=== PATIENT | male | born 1960 | race Caucasian/White ===

== ENCOUNTER 2019-01-16 08:56 | Day surgery (SDC) ==
[2019-01-16] MEDS ORDERED: cefOXitin 2,000 MG in Water for inj. (sterile) 20 ML IVP ONE (09:23)
[2019-01-16] MEDS ORDERED: Ringers Solution, Lactated 1,000 ML IVC SCH ×2 (09:30)
[2019-01-16] MEDS ORDERED: *HR* Promethazine 25 MG/ML VIAL IVP PRN (09:30)
[2019-01-16] MEDS ORDERED: Ondansetron ODT 4 MG TAB.RAPDIS SL ONE (09:30)
[2019-01-16] MEDS ORDERED: *HR* Meperidine 25 MG/ML SYRINGE IVP PRN (09:30)
[2019-01-16] MEDS ORDERED: diazePAM 5 MG TABLET PO ONE (09:30)
[2019-01-16] MEDS ORDERED: Acetaminophen IV 1,000 MG/100 ML INFUS..BTL IVPB ONE (09:30)
[2019-01-16] MEDS ORDERED: *HR* OxyCODONE Immed Rel 5 MG TABLET PO PRN (09:30)
[2019-01-16] MEDS ORDERED: *HR* Rocuronium Bromide 50 MG/5 ML VIAL ONE (09:53)
[2019-01-16] MEDS ORDERED: *HR* Succinylcholine 200 MG/10 ML VIAL IVP ONE (09:53)
[2019-01-16] MEDS ORDERED: Ondansetron 4 MG/2 ML VIAL ONE (09:53)
[2019-01-16] MEDS ORDERED: Dexamethasone 4 MG/ML VIAL ONE (09:53)
[2019-01-16] MEDS ORDERED: Lidocaine -MPF 2% 2 ML VIAL ONE (09:53)
[2019-01-16] MEDS ORDERED: *HR* Propofol 200 MG/20 ML VIAL IVP ONE ×2 (09:57→11:42)
[2019-01-16] MEDS ORDERED: *HR* FentaNYL (PF) 100 MCG/2 ML VIAL ONE (09:57)
[2019-01-16] MEDS ORDERED: *HR* Midazolam HCl 2 MG/2 ML VIAL ONE (10:38)
[2019-01-16] MEDS ORDERED: Lidocaine HCL 4 ML Topical Solution (Laryng-O-Jet Kit Sterile Pak) TP ONE (11:44)
[2019-01-16] MEDS ORDERED: *HR* PHENYLEPHRINE 1,000 MCG/10 ML SYRINGE IVP ONE (12:52)
[2019-01-16] MEDS: *HR* HYDROmorphone (PF) 1 MG/ML SYRINGE IVP PRN ×2 (14:49→15:00)
[2019-01-16] MEDS ORDERED: Ketorolac 15 MG/ML VIAL IVP PRN (15:26)
[2019-01-16] MEDS: 0.9 % Sodium Chloride w KCl 20 MEQ/1,000 ML MLS IVC SCH (19:01)
[2019-01-17] MEDS: 0.9 % Sodium Chloride w KCl 20 MEQ/1,000 ML MLS IVC SCH ×2 (09:14→23:46)
[2019-01-17] MEDS: hydroCHLOROthiazide 25 MG TABLET PO SCH (09:14)
[2019-01-17] MEDS: Lisinopril 20 MG TABLET PO SCH (09:15)
[2019-01-17] MEDS: Ondansetron 4 MG/2 ML VIAL IVP PRN ×2 (14:07→19:59)
[2019-01-18] MEDS: Ondansetron 4 MG/2 ML VIAL IVP PRN (08:50)
[2019-01-18] MEDS: Lisinopril 20 MG TABLET PO SCH (08:50)
[2019-01-18] MEDS: hydroCHLOROthiazide 25 MG TABLET PO SCH (08:50)
[2019-01-18 11:18] VITALS: BP 101/61
[2019-01-18] MEDS ORDERED: Ondansetron ODT 4 MG TAB.RAPDIS SL PRN (12:41)
[2019-01-18] MEDS ORDERED: Ibuprofen 800 MG TABLET PO PRN (12:41)
[2019-01-18] MEDS ORDERED: *HR* OxyCODONE Immed Rel 5 MG TABLET PO PRN (12:43)
== END 2019-01-18 17:30 | disposition home or self-care (01) | DRG 348 ==
LOC: SAMDAY 08:56 → 3NENU 14:36 → SAMDAY 01-18 17:30
PROVIDERS: ATTEND Surgery

== ENCOUNTER 2019-01-22 16:14 | Inpatient (IN) ==
[2019-01-22] MEDS: 0.9 % Sodium Chloride 1,000 ML IVC SCH (21:53)
[2019-01-22] MEDS ORDERED: Ondansetron 4 MG/2 ML VIAL IVP PRN (23:48)
[2019-01-23] MEDS: Piperacillin/Tazobactam 3.375 GM in 0.9 % Sodium Chloride Mini Bag 100 ML IVPB SCH ×4 (00:59→23:29)
[2019-01-23 07:45] LABS: Eosinophils # 0.1 K/mcL (0.0-0.6); Eosinophils % 1.2 %; Hemoglobin 7.8 g/dL (12.9-16.9); Immature Granulocytes % 0.6 % (0-4); Lymphocytes # 0.3 K/mcL (0.6-4.6); Mean Corpuscular HGB Conc 31.2 g/dL (31.6-35.5); Mean Corpuscular Hemoglobin 24.8 pg (28.0-33.3); Mean Corpuscular Volume 79.6 fL (83.0-100.0); Monocytes # 0.6 K/mcL (0.0-1.3); Monocytes % 9.1 %; Neutrophils # 5.6 K/mcL (1.6-8.9); Platelet Count 211 K/mcL (140-400); Red Blood Count 3.14 M/mcL (4.19-5.50); Red Cell Distribution Width 14.7 % (11.5-14.5); Segmented Neutrophils % 84.1 %; White Blood Count 6.6 K/mcL (4.3-11.1)
[2019-01-23 08:05] LABS: BUN/Creatinine Ratio 14 (6-26); Blood Urea Nitrogen 11 mg/dL (6-20); Carbon Dioxide 25 mEq/L (23-29); Chloride 98 mEq/L (98-107); Glucose 90 mg/dL (70-105); Osmolality,Calculated 277 (280-300); Potassium 2.8 mEq/L (3.5-5.1); Sodium 134 mEq/L (136-145); eGFR For African Americans > 60 (> 60); eGFR For Non-African Americans > 60 (> 60)
[2019-01-23] MEDS: 0.9 % Sodium Chloride 1,000 ML IVC SCH ×2 (08:18→20:18)
--- NOTE | 2019-01-23 09:57 | General Surg History&Physical ---
Date of Encounter: 01/23/19 Time of Encounter: 09:50 Assessment and Plan (1) Perforation and abscess of large intestine concurrent with and due to diverticulitis Current Visit: Yes Status: Acute The assessment and plan as outlined above was discussed with the patient and/or family members who expressed understanding and agreement. All questions were an swered. NPO IV fluids IV antibiotics- Zosyn Supportive care Wound care- wound vac removed and packing placed for not Plan to proceed to the operating room for a laparoscopic diverting loop ileostomy with Dr. Cobos IS every 1 hour while awake GI/DVT prophylaxis Repeat am labs- CBC, BMP Type and Screen now (2) Colostomy complication Current Visit: No Status: Acute The assessment and plan as outlined above was discussed with the patient and/or family members who expressed understanding and agreement. All questions were answered. Plan to proceed to the operating room for a laparoscopic diverting loop ileostomy with Dr. Cobos (3) Open wound, abdominal wall, lateral Current Visit: Yes Status: Acute The assessment and plan as outlined above was discussed with the patient and/or family members who expressed understanding and agreement. All questions were answered. Plan to proceed to the operating room for a laparoscopic diverting loop ileostomy with Dr. Cobos Wound vac removed Plan to re-apply likely post-operatively [employer] notified to hold outpatient billing while hospitalized student services counselor consulted and notified Qualifiers: Encounter type: subsequent encounter Qualified Code(s): S31.109D - Unspecified open wound of abdominal wall, unspecified quadrant without penetration into peritoneal cavity, subsequent encounter (4) Rectal cancer Current Visit: No Status: Chronic The assessment and plan as outlined above was discussed with the patient and/or family members who expressed understanding and agreement. All questions were answered. Oncology following as outpatient (5) Hypokalemia Current Visit: Yes Status: Acute The assessment and plan as outlined above was discussed with the patient and/or family members who expressed understanding and agreement. All questions were answered. Potassium- 2.8 Replace potassium Repeat level at 2100 after replacement complete Repeat am BMP (6) DVT prophylaxis Current Visit: No Status: Acute The assessment and plan as outlined above was discussed with the patient and/or family members who expressed understanding and agreement. All questions were answered. Ambulate hallways TID with assistance EPCDs bilateral lower extremities for DVT prophylaxis History of Present Illness Chief complaint: s/p Fall, purulent drainage from left lateral wound HPI: Mr. Garcia is a 58 year old male with a history of rectal cancer. He was initially treated with chemotherapy and radiation. He is s/p an APR with Dr. Cobos on November 21, 2018. His postoperative course has been complicated by a detached ostomy, wound and perforated diverticulum. He was taken to the operat ing room on 01/17/19 for a Revision of colostomy and placement of wound VAC with Dr. Cobos. The patient states that he has been feeling weak since his last surgery. He fell yesterday due to weakness and was taken by his to the nearest ED at [facility]. He states that he did not lose consciousness, he simply felt weak and fell to his knees. He did not hit anything when he fell. He denies any changes in abdominal discomfort. Denies any nausea/vomiting. He reports that he is having bowel function through his colostomy. He denies any fevers or chills. Denies any syncopal episodes. Denies any shortness of breath of chest pain. He does have a resendez catheter in place and was scheduled to follow-up with urology today 01/23. After initial evaluation, he was transferred to [facility] for further work-up and treatment. The patient has reported stool/purulent drainage draining from his left side. Past Med Surg Social Fam HX - Past Medical History Source: patient, old records reviewed Medical history: cancer (rectal), diabetes, GI bleed, hypertension Additional medical history: Colon cancer- possible, need repeat colonoscopy, edema Psychiatric history: no psych history - Past Surgical History Surgical History: colectomy (APR 11/21/18), herniorrhaphy Additional surgical history: Revision of colostomy and placement of wound VAC 01/17/19 - Social History Smoking Status: Never smoker Smokeless Tobacco Status: No Alcohol use: none Drug use: none Current living situation: Home - Independent - Family History Mother Living Status: Age at : 74 Cause of : anuerysm Hx Family Cardiac Disorders: No Hx Family Cancer: No Hx Family Genitourinary Disorders: No Hx Family Endocrine Disorder: No Hx Family Musculoskeletal Disorders: No Hx Family Neuromuscular Disorders: No Hx Family Autoimmune Disorders: No Medications and Allergies Benazepril HCl 40 mg PO DAILY 08/23/18 [History] Oxycodone HCl [Roxybond] 5 mg PO Q6H PRN 11/08/18 [History] hydroCHLOROthiazide [Hydrochlorothiazide] 25 mg PO DAILY 11/21/18 [History] Docusate Sodium [Colace] 100 mg PO BID #60 capsule 11/23/18 [Rx] Ibuprofen 800 mg PO Q8H PRN #30 tablet 11/23/18 [Rx] Ondansetron ODT [Zofran ODT] 4 mg SL Q4HR PRN #15 tab.rapdis 11/23/18 [Rx] Oxybutynin [Ditropan] 5 mg PO TID 01/16/19 [History] Zolpidem [Ambien] 10 mg PO HS 01/16/19 [History] OxyCODONE/APAP 5/325 [Percocet 5/325 MG] 1 each PO Q6HR PRN 7 Days #14 tablet 01/18/19 [Rx] Allergy/AdvReac Type Severity Reaction Status Date / Time No Known Allergies Allergy Verified 01/16/19 09:30 Review of Systems All systems PM: reviewed and no additional remarkable complaints except as stated (in the HPI) All systems PM: The remainder of the systems were reviewed and are negative General Surgery Exam Initial Vital Signs Temp Pulse Resp BP Pulse Ox 98.0 F 67 16 106/61 98 01/22/19 21:25 01/22/19 21:25 01/22/19 21:25 01/22/19 21:25 01/22/19 21:25 - General physical appearance well developed, moderate pain, chronically ill, obese - Eyes PERRL, normal ocular movement - ENT normal mucosa, atraumatic, normocephalic - Neck trachea midline - Respiratory normal respiratory effort, clear to auscultation - Cardiovascular Cardiovascular exam: Present: RRR, 15, 16 - Abdomen Abdomen general surgery: Present: bowel sounds present, soft, tender, wound (Left sided wound with purulent/foul smelling drainage noted (large amount), no surrounding erythema or induration noted; Colostomy pink and moist (detached at bottom edge)) - Incision Incision: Present: purulent (see wound above) - Genitourinary Present: other (resendez catheter to SD with clear, yellow urine noted) - Neurologic Present: CN 2-12 grossly intact - Psychiatric Psychiatric general surgery: Present: appropriate, oriented to person, oriented to place, oriented to time, speech is normal, memory intact Results - Labs 01/23/19 07:29 01/23/19 07:29 Abnormal lab results RBC 3.14 M/mcL (4.19-5.50) L 01/23/19 07: Hgb 7.8 g/dL (12.9-16.9) L 01/23/19 07:29 Hct 25.0 % (37.5-50.1) L 01/23/19 07: MCV 79.6 fL (83.0-100.0) L 01/23/19 07:29 MCH 24.8 pg (28.0-33.3) L 01/23/19 07: MCHC 31.2 g/dL (31.6-35.5) L 01/23/19 07: RDW 14.7 % (11.5-14.5) H 01/23/19 07: Lymphocytes # 0.3 K/mcL (0.6-4.6) L 01/23/19 07:29 Sodium 134 mEq/L (136-145) L 01/23/19 07:29 Potassium 2.8 mEq/L (3.5-5.1) L 01/23/19 07:29 Calculated Osmolality 277 (280-300) L 01/23/19 07:29 Calcium 8.0 mg/dL (8.6-10.3) L 01/23/19 07:29 Diabetes panel 01/23/19 Range/Units 07:29 Sodium 134 L (136-145) mEq/L Potassium 2.8 L (3.5-5.1) mEq/L Chloride 98 (98-107) mEq/L Carbon Dioxide 25 (23-29) mEq/L BUN 11 (6-20) mg/dL Creatinine 0.81 (0.70-1.30) mg/dL Glucose 90 (70-105) mg/dL Calcium 8.0 L (8.6-10.3) mg/dL Calcium panel 01/23/19 Range/Units 07:29 Calcium 8.0 L (8.6-10.3) mg/dL Pituitary panel 01/23/19 Range/Units 07:29 Sodium 134 L (136-145) mEq/L Potassium 2.8 L (3.5-5.1) mEq/L Chloride 98 (98-107) mEq/L Carbon Dioxide 25 (23-29) mEq/L BUN 11 (6-20) mg/dL Creatinine 0.81 (0.70-1.30) mg/dL Glucose 90 (70-105) mg/dL Calcium 8.0 L (8.6-10.3) mg/dL Adrenal panel 01/23/19 Range/Units 07:29 Sodium 134 L (136-145) mEq/L Potassium 2.8 L (3.5-5.1) mEq/L Chloride 98 (98-107) mEq/L Carbon Dioxide 25 (23-29) mEq/L BUN 11 (6-20) mg/dL Creatinine 0.81 (0.70-1.30) mg/dL Glucose 90 (70-105) mg/dL Calcium 8.0 L (8.6-10.3) mg/dL All other labs normal. - Attending Attestation For this encounter, I have reviewed the CAISSON WORKER or PA documentation, treatment plan, and medical decision making; and I have had face to face time with this patient.
[2019-01-23] MEDS ORDERED: Naloxone 0.4 MG/ML INJ IVP PRN (10:13)
[2019-01-23] MEDS ORDERED: Pantoprazole 40 MG VIAL IVP SCH (10:30)
[2019-01-23] MEDS ORDERED: Potassium Chloride 40 MEQ, Lidocaine 1% 2 ML in 0.9 % Sodium Chloride 500 ML IVPB ONE (16:00)
[2019-01-24] MEDS ORDERED: *HR* Propofol 200 MG/20 ML VIAL IVP ONE (01:02)
[2019-01-24] MEDS ORDERED: *HR* FentaNYL (PF) 100 MCG/2 ML VIAL ONE ×2 (01:02→02:11)
--- NOTE | 2019-01-24 01:15 | Anesthesia Evaluation PreOp ---
Date of Encounter: 01/24/19 Time of Encounter: 01:15 - Past History Planned Operation: Lap Loop Diverting Ileostomy Cardiac History: HTN, Hyperlipidemia, Other (Anemia chronic disease) Pulmonary History: Denies Any Significant HX PRODUCT INFO SPECIALIST History: Denies Any Significant HX Other Medical History: Diabetes Type II Anesthesia History: No Prior Anesthetic Complications Alcohol Use: none Drug use: none Medications and Allergies Benazepril HCl 40 mg PO DAILY 08/23/18 [History] hydroCHLOROthiazide [Hydrochlorothiazide] 25 mg PO DAILY 11/21/18 [History] Docusate Sodium [Colace] 100 mg PO BID #60 capsule 11/23/18 [Rx] Ibuprofen 800 mg PO Q8H PRN #30 tablet 11/23/18 [Rx] Ondansetron ODT [Zofran ODT] 4 mg SL Q4HR PRN #15 tab.rapdis 11/23/18 [Rx] Oxybutynin [Ditropan] 5 mg PO TID 01/16/19 [History] Zolpidem [Ambien] 10 mg PO HS 01/16/19 [History] OxyCODONE/APAP 5/325 [Percocet 5/325 MG] 1 each PO Q6HR PRN 7 Days #14 tablet 01/18/19 [Rx] Potassium Chloride 20 meq PO DAILY 01/23/19 [History] Allergy/AdvReac Type Severity Reaction Status Date / Time No Known Allergies Allergy Verified 01/16/19 09:30 - Meds/Allergy Pre-op Review Medications Reviewed: Yes Allergies Reviewed: Yes Beta Blockers on Current Med List: No Anesthesia Results - Labs 01/23/19 07:29 01/23/19 21:14 - Imaging EKG: report reviewed (SR) Anesthesia Exam Vital Signs/O2 Sat/Glucose, Most Current Temp Pulse Resp BP Pulse Ox 01/24/19 00:08 98.6 F 66 15 113/70 93 Height: 6'2 Weight: 260 lbs NPO (# of Hours): MN Pain Scale: 0 - HEENT Pupil (Motor): Pupils equal, EOMI Mallampati: II Teeth: Normal Oral Opening: Greater than 3 - PRODUCT INFO SPECIALIST LOC: Oriented PRODUCT INFO SPECIALIST Motor: Normal RUE, Normal LUE, Normal RLE, Normal LLE, Normal Face PRODUCT INFO SPECIALIST Sensory: Normal: RUE, LUE, RLE, LLE, Face - Cardiac Rhythm: Regular Murmur: None JVD: No Carotid Bruit: No - Pulmonary Breath Sounds: bilateral Clear Respiratory Effort: Symmetrical Anesthesia Assess/Plan ASA Score: 3 (HTN DM) Level of consciousness: Cooperative, Oriented Anesthetic Plan: General Autologous Blood: No Monitoring Plan: Standard Monitors Recovery Plan: PACU (Discussed GA, agrees to proceed)
[2019-01-24] MEDS ORDERED: Acetaminophen IV 1,000 MG/100 ML INFUS..BTL ONE (01:37)
[2019-01-24] MEDS ORDERED: Lidocaine -MPF 2% 2 ML VIAL ONE (02:18)
[2019-01-24] MEDS ORDERED: *HR* Rocuronium Bromide 50 MG/5 ML VIAL ONE (02:23)
[2019-01-24] MEDS ORDERED: Neostigmine Methylsulfate 3 MG/3 ML SYRINGE ONE (04:09)
[2019-01-24] MEDS ORDERED: Ondansetron 4 MG/2 ML VIAL ONE (04:26)
[2019-01-24] MEDS ORDERED: Dexamethasone 4 MG/ML VIAL ONE (04:26)
--- NOTE | 2019-01-24 04:36 | Operative Note ---
Date of procedure: 01/24/19 Pre-op diagnosis: Left abdominal wall abscess Post-op diagnosis: same Procedure: Diagnostic laparoscopy with splenic flexure takedown and partial descending colectomy followed by revision of colostomy Wound VAC placement Anesthesia: SUKI Surgeon: Sawyer Cobos Was there an secretary administrative assistant present: No Estimated blood loss (cc): 25 Specimen: Descending colon Condition: stable Disposition: same day Procedure in Detail: After informed consent patient was taken the operating room placed in the supine position. After adequate sedation and anesthesia the abdomen was prepped and draped. The patient undergone colostomy revision a week ago for a perforated sigmoid diverticulum. The patient presented to an [facility] emergency department with hypotension. He was evaluated here at [place] and found to have purulent material coming from his left flank wound. Was determined that point that the closure of the diverticulum and likely failed. Therefore he was taken to surgery and the wound was opened. A Pulsavac irrigation system was used to clean the wound. Upon visualizing the descending colon once of been mobilized was found to have failure the closure of the diverticulum. Made a decision at this point to perform a diagnostic laparoscopy. 3 individual 5 mm cannulas were placed in the right upper abdomen. Once in place pneumoperitoneum was created. The splenic flexure was mobilized with the Harmonic scalpel. The lateral colonic attachments were taken down with Harmonic scalpel as well. Once the excess length of been created, the colon was then further isolated and pulled up through the ostomy site. The distal descending colon was transected with sharp dissection. The colon was matured at the same ostomy site. The wound again was irrigated with a Pulsavac. Once this was complete the wound was closed with a 2-0 Vicryl suture. Wound VAC sponge was then placed in the wound cavity. Was connected to the wound VAC. The patient was extubated in the operating room and taken recovery in satisfactory condition.
[2019-01-24] MEDS ORDERED: *HR* Promethazine 25 MG/ML VIAL IVP PRN (04:54)
[2019-01-24] MEDS ORDERED: Ondansetron 4 MG/2 ML VIAL IVP ONE (04:54)
[2019-01-24] MEDS: *HR* HYDROmorphone (PF) 1 MG/ML SYRINGE IVP PRN ×3 (05:02→05:20)
[2019-01-24] MEDS ORDERED: Naloxone 0.4 MG/ML INJ IVP PRN (05:53)
[2019-01-24] MEDS ORDERED: *HR* Heparin 5,000 UNIT/ML VIAL SQ SCH (06:00)
[2019-01-24] MEDS: 0.9 % Sodium Chloride 1,000 ML IVC SCH ×2 (06:27→18:27)
[2019-01-24] MEDS: *HR* Heparin 5,000 UNIT/ML VIAL SQ SCH ×2 (06:28→18:26)
--- NOTE | 2019-01-24 06:30 | Anesthesia Evaluation Post Op ---
Date of Encounter: 01/24/19 Time of Encounter: 18:30 - Vital Signs Vital Signs: Vital Signs/O2 Sat/Glucose, Most Current Temp Pulse Resp BP Pulse Ox 01/24/19 06:26 65 16 111/67 94 01/24/19 06:16 97.8 F 65 16 111/67 94 01/24/19 05:55 97.8 F 64 15 113/70 97 01/24/19 05:35 97.9 F 67 16 107/65 98 01/24/19 05:25 66 14 117/65 98 01/24/19 05:15 67 16 113/66 94 01/24/19 05:05 98.2 F 65 14 116/63 93 01/24/19 04:55 66 16 112/64 95 01/24/19 04:45 66 14 111/62 95 01/24/19 04:35 97.8 F 65 12 116/68 96 - Lungs Lungs: Clear Ascult./Percussion - Airway Airway: Non-obstructed - Cardiovascular Regular Rate - Mental Status Mental Status: Alert & Oriented, Answers Appropriately - Pain Pain Scale: 2 - Nausea Vomiting Nausea Vomiting: Not Present - Hydration Hydration: Ice chips - Discharge PostOp Status: Transfer Patient to floor
[2019-01-24] MEDS: Ondansetron 4 MG/2 ML VIAL IVP PRN ×2 (06:31→19:26)
[2019-01-24] MEDS: Pantoprazole 40 MG VIAL IVP SCH (08:37)
[2019-01-24] MEDS: Piperacillin/Tazobactam 3.375 GM in 0.9 % Sodium Chloride Mini Bag 100 ML IVPB SCH ×2 (08:37→18:25)
[2019-01-24 08:42] LABS: Basophils % 0.1 %; Eosinophils % 0.1 %; Hematocrit 26.4 % (37.5-50.1); Hemoglobin 8.1 g/dL (12.9-16.9); Immature Granulocytes % 0.5 % (0-4); Lymphocytes # 0.2 K/mcL (0.6-4.6); Lymphocytes % 1.8 %; Mean Corpuscular HGB Conc 30.7 g/dL (31.6-35.5); Mean Corpuscular Hemoglobin 25.2 pg (28.0-33.3); Mean Platelet Volume 10.2 fL (9.4-12.4); Monocytes # 0.5 K/mcL (0.0-1.3); Monocytes % 4.7 %; Neutrophils # 10.2 K/mcL (1.6-8.9); Platelet Count 257 K/mcL (140-400); Red Blood Count 3.22 M/mcL (4.19-5.50); Red Cell Distribution Width 14.6 % (11.5-14.5); Segmented Neutrophils % 92.8 %
[2019-01-24 09:00] LABS: BUN/Creatinine Ratio 11 (6-26); Blood Urea Nitrogen 8 mg/dL (6-20); Calcium 8.1 mg/dL (8.6-10.3); Carbon Dioxide 23 mEq/L (23-29); Chloride 100 mEq/L (98-107); Glucose 109 mg/dL (70-105); Osmolality,Calculated 279 (280-300); Potassium 3.3 mEq/L (3.5-5.1); Sodium 135 mEq/L (136-145); eGFR For African Americans > 60 (> 60); eGFR For Non-African Americans > 60 (> 60)
[2019-01-24] MEDS ORDERED: Potassium Chloride 40 MEQ, Lidocaine 1% 2 ML in D5% in Water 500 ML IVPB ONE (09:22)
--- NOTE | 2019-01-24 09:23 | General Surgery Progress Note ---
Date of Encounter: 01/24/19 Time of Encounter: 09:23 (EVENT note rather than progress note as pt is POD#0) - Assessment and Plan (1) Abdominal wall abscess Current Visit: Yes Status: Acute Date of procedure: 01/24/19 Pre-op diagnosis: Left abdominal wall abscess Post-op diagnosis: same Procedure: Diagnostic laparoscopy with splenic flexure takedown and partial descending colectomy followed by revision of colostomy Wound VAC placement Anesthesia: GETA Surgeon: Sawyer Cobos POD #0 as above. Pain is controlled. a-febrile. Reports he wants to have PT/OT at home. Plan: Continue supportive care and discomfort management while awaiting full return of bowel function Continue G.I. and DVT prophylaxis Protonix and hep SQ Incentive spirometry 10 times every hour while awake Out of bed to chair TID, do not offer meal trays while in the bed Activity as tolerated Apply ice 20 minutes on 20 minutes off as needed Ostomy care Repeat am labs Continue IV ATBX (2) Urethral injury Current Visit: No Status: Acute Consult placed to Urology regarding pt reports urine in his colostomy. Noted plans for ct cystogram Further recommendations per urology Defer management of ditorpan to urology Qualifiers: Encounter type: initial encounter Qualified Code(s): S37.30XA - Unspecified injury of urethra, initial encounter (3) HTN, goal below 130/80 Current Visit: Yes Status: Acute pt reports he feels that his "falling/collapse" Monday was related to taking his BP meds when his BP was in the 1teens, and then later felt weak, fell to his knees, and couldn't get back up. Will hold meds at this time. Subjective Patient reports: pain is less Narrative: reports bladder spasm and then "urine came up in my colosotmy yesterday. I asked the nurse to tell dr. cobos, but I'm not sure she did." Objective Vital Signs - Last 8 Hours Temp Pulse Resp BP Pulse Ox 01/24/19 08:30 97.6 F 66 16 115/63 98 01/24/19 07:30 97.6 F 67 16 113/70 98 01/24/19 06:26 65 16 111/67 94 01/24/19 06:16 97.8 F 65 16 111/67 94 01/24/19 05:55 97.8 F 64 15 113/70 97 01/24/19 05:35 97.9 F 67 16 107/65 98 01/24/19 05:25 66 14 117/65 98 01/24/19 05:15 67 16 113/66 94 01/24/19 05:05 98.2 F 65 14 116/63 93 01/24/19 04:55 66 16 112/64 95 01/24/19 04:45 66 14 111/62 95 01/24/19 04:35 97.8 F 65 12 116/68 96 Intake and Output 01/23/19 01/24/19 01/24/19 23:59 07:59 15:59 Intake Total 1622 / 3182 100 / 100 Output Total 450 / 450 Balance 1622 / 1232 -350 / -350 Intake: IV Fluids 1622 / 2822 100 / 100 0.9 % Sodium Chloride 1,000 ML 1000 / 2000 @ 100 mls/hr IVC .Q10H [facility] Rx#: [id number] Zosyn 3.375 GM In 0.9 % Sodium 100 / 300 100 / 100 Chloride (Mini-Bag +) 100 ML @ 25 mls/hr IVPB Q8HR [facility] Rx#: [id number] Potassium Chloride 40 MEQ 522 / 522 Xylocaine 2 ML In 0.9 % Sodium Chloride 500 ML @ 130.5 mls/hr IVPB ONCE ONE Rx#:[id number] Oral 0 / 360 Output: Estimated Blood Loss 50 / 50 Urine Amount (Catheter) 400 / 400 Other: Blood Glucose* 94 95 - General physical appearance no distress, moderate pain, chronically ill, obese - Eyes normal ocular movement - ENT atraumatic, normocephalic - Neck Neck exam: trachea midline - Cardiovascular Cardiovascular exam: Present: RRR - Abdomen Abdomen: Present: soft, tender (expected postoperative), wound (wound vac in place, SS drainage). Absent: bowel sounds present - Incision Incision: Present: clean and dry, intact - Rectum other (s/p APR) - Integumentary no rash - Neurologic normal sensation - Musculoskeletal normal posture - Psychiatric oriented to time, oriented to person, oriented to place - Labs 01/24/19 08:28 01/24/19 08:28 Diabetes panel 01/23/19 01/24/19 Range/Units 21:14 08:28 Sodium 135 L (136-145) mEq/L Potassium 3.4 L 3.3 L (3.5-5.1) mEq/L Chloride 100 (98-107) mEq/L Carbon Dioxide 23 (23-29) mEq/L BUN 8 (6-20) mg/dL Creatinine 0.74 (0.70-1.30) mg/dL Glucose 109 H (70-105) mg/dL Calcium 8.1 L (8.6-10.3) mg/dL Calcium panel 01/24/19 Range/Units 08:28 Calcium 8.1 L (8.6-10.3) mg/dL Pituitary panel 01/23/19 01/24/19 Range/Units 21:14 08:28 Sodium 135 L (136-145) mEq/L Potassium 3.4 L 3.3 L (3.5-5.1) mEq/L Chloride 100 (98-107) mEq/L Carbon Dioxide 23 (23-29) mEq/L BUN 8 (6-20) mg/dL Creatinine 0.74 (0.70-1.30) mg/dL Glucose 109 H (70-105) mg/dL Calcium 8.1 L (8.6-10.3) mg/dL Adrenal panel 01/23/19 01/24/19 Range/Units 21:14 08:28 Sodium 135 L (136-145) mEq/L Potassium 3.4 L 3.3 L (3.5-5.1) mEq/L Chloride 100 (98-107) mEq/L Carbon Dioxide 23 (23-29) mEq/L BUN 8 (6-20) mg/dL Creatinine 0.74 (0.70-1.30) mg/dL Glucose 109 H (70-105) mg/dL Calcium 8.1 L (8.6-10.3) mg/dL Consult Discharge Plan - Plan Referrals: Nancy Humphries CNP [Primary Care Provider] -
--- NOTE | 2019-01-24 13:13 | Urology - Consult Note ---
<Coco Chapin N - Last Filed: 01/24/19 13:11> Date of Encounter: 01/24/19 Time of Encounter: 11:30 - Assessment and Plan (1) Bladder spasm Current Visit: Yes Status: Acute Assessment and plan: Patient is a 58-year-old male who presents with a history of bladder spasms. Patient reports minimal discomfort with urinary catheter at this time. If patient experiences bothersome bladder spasms, we may try oxybutynin and/or Levsin. (2) Urethral injury Current Visit: Yes Status: Acute Assessment and plan: Patient is a 58-year-old male who sustained a urethral injury during robotic APR on 11/21/2018. Patient has undergone a retrograde urethrogram on 12/25/2018 revealing extravasation. Patient is scheduled for an upcoming appointment with Dr. Delgado on 01/29/2019 for possible catheter removal. However, patient has experienced further bladder spasms with concern for urine within the colostomy appliance. We have ordered a CT cystogram to evaluate for possible urinoma, and patient is tentatively scheduled for a retrograde urethrogram tomorrow with Dr. Perez at 1500. Qualifiers: Encounter type: subsequent encounter Qualified Code(s): S37.30XD - Unspecified injury of urethra, subsequent encounter Urology CN:HPI Consult date: 01/24/19 Reason for consult Urology: Other (Indwelling Nguyễn catheter status post urethral injury) Requesting physician: Fouzia Duong History of present illness: Patient is a 58-year-old male who presents with a history of rectal cancer. Patient has undergone chemotherapy and radiation for treatment, and he is status post robotic abdominoperineal resection with injury to the prostatic urethra on 11/21/2018. This was repaired intraoperatively, and patient has maintained the initial urinary catheter. Patient experienced a bowel obstruction postoperatively and underwent a robotic diagnostic laparoscopy, exploratory laparotomy with small bowel resection and primary stapled anastomosis on 12/06/2018. Patient also experienced a ruptured sigmoid diverticulum and underwent a colostomy revision with wound VAC placement on 01/16/2019. Patient is recovering well at home, and he sustained a fall secondary to weakness. Patient's brought him to [facility] to the emergency department for further evaluation. He was subsequently transferred to [facility] for further evaluation. Patient underwent diagnostic laparoscopy with splenic flexure takedown and partial descending colectomy followed by revision of colostomy Wound VAC placement on 01/24/2019 secondary to an abdominal wall abscess. Patient has been seen in the outpatient urology setting and underwent retrograde urethrogram on 12/25/2018 revealing extravasation of contrast material cons istent with urethral injury. Patient has maintained his catheter, and the urine remains clear. He reports experiencing intermittent leaking around his urethral catheter with bladder spasms as well as reflux of urine into his colostomy appliance during these bladder spasms. Patient denies any gross hematuria, flank pain, fever or chills. Nguyễn catheter is indwelling and draining transparent, clear yellow urine into bedside bag. Past Med Surg Social Fam HX - Past Medical History Medical history: cancer (rectal), diabetes, GI bleed, hypertension Additional medical history: Colon cancer- possible, need repeat colonoscopy, edema Psychiatric history: no psych history - Past Surgical History Surgical History: colectomy (APR 11/21/18), herniorrhaphy Additional surgical history: Revision of colostomy and placement of wound VAC 01/17/19 - Social History Smoking Status: Never smoker Smokeless Tobacco Status: No Alcohol use: none Drug use: none - Family History Mother Living Status: Age at : 74 Cause of : anuerysm Hx Family Cardiac Disorders: No Hx Family Cancer: No Hx Family Genitourinary Disorders: No Hx Family Endocrine Disorder: No Hx Family Musculoskeletal Disorders: No Hx Family Neuromuscular Disorders: No Hx Family Autoimmune Disorders: No Medications and Allergies Benazepril HCl 40 mg PO DAILY 08/23/18 [History] hydroCHLOROthiazide [Hydrochlorothiazide] 25 mg PO DAILY 11/21/18 [History] Docusate Sodium [Colace] 100 mg PO BID #60 capsule 11/23/18 [Rx] Ibuprofen 800 mg PO Q8H PRN #30 tablet 11/23/18 [Rx] Ondansetron ODT [Zofran ODT] 4 mg SL Q4HR PRN #15 tab.rapdis 11/23/18 [Rx] Oxybutynin [Ditropan] 5 mg PO TID 01/16/19 [History] Zolpidem [Ambien] 10 mg PO HS 01/16/19 [History] OxyCODONE/APAP 5/325 [Percocet 5/325 MG] 1 each PO Q6HR PRN 7 Days #14 tablet 01/18/19 [Rx] Potassium Chloride 20 meq PO DAILY 01/23/19 [History] Allergy/AdvReac Type Severity Reaction Status Date / Time No Known Allergies Allergy Verified 01/16/19 09:30 Review of Systems - Constitutional fatigue, weakness, weight loss, no chills, no fever(s) - EENT Nose, mouth and throat: no dizziness, no headache(s) - Cardiovascular no chest pain, no diaphoresis, no dyspnea - Respiratory no cough, no dyspnea - Gastrointestinal abdominal pain, nausea, no change in bowel habits, no vomiting - Genitourinary urinary incontinence, no dysuria, no flank pain, no hematuria - Musculoskeletal muscle weakness, no back pain - Integumentary no erythema, no rash - Neurological no confusion, no syncope - Psychiatric no anxiety, no confusion - Hematologic/Lymphatic no easy bleeding, no easy bruising - Allergic/Immunologic no throat swelling, no wheezing Exam Initial Vital Signs Temp Pulse Resp BP Pulse Ox 98.0 F 67 16 106/61 98 01/22/19 21:25 01/22/19 21:25 01/22/19 21:25 01/22/19 21:25 01/22/19 21:25 - General physical appearance Present: no distress, no pain - Eyes Present: PERRL, normal ocular movement - ENT Present: normal nares, no hearing loss, no congestion - Neck Present: no masses, trachea midline - Respiratory Present: normal respiratory effort - Cardiovascular Cardiovascular exam IM: RRR - Abdomen Abdomen: Present: soft, non tender, wound (Colostomy site appears benign; wound VAC is adhered). Absent: distended - Genitourinary other (Nguyễn catheter is indwelling and draining transparent, clear yellow urine with moderate sediment into bedside bag) Urethral meatis: Present: patent - Integumentary Present: no rash, no abnormal pigmentation - Neurologic Present: normal coordination - Musculoskeletal Present: other (Normal posture) Urology Results - Labs 01/24/19 08:28 01/24/19 08:28 Abnormal lab results RBC 3.22 M/mcL (4.19-5.50) L 01/24/19 08:28 Hgb 8.1 g/dL (12.9-16.9) L 01/24/19 08:28 Hct 26.4 % (37.5-50.1) L 01/24/19 08:28 MCV 82.0 fL (83.0-100.0) L 01/24/19 08:28 MCH 25.2 pg (28.0-33.3) L 01/24/19 08:28 MCHC 30.7 g/dL (31.6-35.5) L 01/24/19 08:28 RDW 14.6 % (11.5-14.5) H 01/24/19 08:28 Neutrophils # 10.2 K/mcL (1.6-8.9) H 01/24/19 08:28 Lymphocytes # 0.2 K/mcL (0.6-4.6) L 01/24/19 08:28 Sodium 135 mEq/L (136-145) L 01/24/19 08:28 Potassium 3.3 mEq/L (3.5-5.1) L 01/24/19 08:28 Glucose 109 mg/dL (70-105) H 01/24/19 08:28 Calculated Osmolality 279 (280-300) L 01/24/19 08:28 Calcium 8.1 mg/dL (8.6-10.3) L 01/24/19 08:28 Diabetes panel 01/23/19 01/24/19 Range/Units 21:14 08:28 Sodium 135 L (136-145) mEq/L Potassium 3.4 L 3.3 L (3.5-5.1) mEq/L Chloride 100 (98-107) mEq/L Carbon Dioxide 23 (23-29) mEq/L BUN 8 (6-20) mg/dL Creatinine 0.74 (0.70-1.30) mg/dL Glucose 109 H (70-105) mg/dL Calcium 8.1 L (8.6-10.3) mg/dL Calcium panel 01/24/19 Range/Units 08:28 Calcium 8.1 L (8.6-10.3) mg/dL Pituitary panel 01/23/19 01/24/19 Range/Units 21:14 08:28 Sodium 135 L (136-145) mEq/L Potassium 3.4 L 3.3 L (3.5-5.1) mEq/L Chloride 100 (98-107) mEq/L Carbon Dioxide 23 (23-29) mEq/L BUN 8 (6-20) mg/dL Creatinine 0.74 (0.70-1.30) mg/dL Glucose 109 H (70-105) mg/dL Calcium 8.1 L (8.6-10.3) mg/dL Adrenal panel 01/23/19 01/24/19 Range/Units 21:14 08:28 Sodium 135 L (136-145) mEq/L Potassium 3.4 L 3.3 L (3.5-5.1) mEq/L Chloride 100 (98-107) mEq/L Carbon Dioxide 23 (23-29) mEq/L BUN 8 (6-20) mg/dL Creatinine 0.74 (0.70-1.30) mg/dL Glucose 109 H (70-105) mg/dL Calcium 8.1 L (8.6-10.3) mg/dL All other labs normal. - Imaging CT scan - pelvis: pending (CT cystogram pending) Consult Discharge Plan - Plan Referrals: Nancy Humphries, FIELD CARE MANAGER [Primary Care Provider] - <Mat Perez - Last Filed: 01/24/19 18:18> Date of Encounter: 01/24/19 Urology CN:RACHAEL History of present illness: Patient was seen and examined independently. I agree with the plan as written by Coco Chapin. Patient had a CT pelvis performed today with cystogram which showed that the patient has active communication between his bladder and prostatic urethra with a small fluid collection posterior to the patient's bladder. I discussed with radiology regarding possible options. At this time no recommended drainage indicated. We will plan on changing patient's catheter tomorrow. If patient clinically does not improve will consider reimaging and subsequent likely drainage of fluid collection. Biggest concern for drainage of fluid collection would be that the patient would develop a long-term fistula to his perineal area. Exam Initial Vital Signs Temp Pulse Resp BP Pulse Ox 98.0 F 67 16 106/61 98 01/22/19 21:25 01/22/19 21:25 01/22/19 21:25 01/22/19 21:25 01/22/19 21:25 Urology Results - Labs 01/24/19 08:28 01/24/19 08:28 Abnormal lab results RBC 3.22 M/mcL (4.19-5.50) L 01/24/19 08:28 Hgb 8.1 g/dL (12.9-16.9) L 01/24/19 08:28 Hct 26.4 % (37.5-50.1) L 01/24/19 08:28 MCV 82.0 fL (83.0-100.0) L 01/24/19 08:28 MCH 25.2 pg (28.0-33.3) L 01/24/19 08:28 MCHC 30.7 g/dL (31.6-35.5) L 01/24/19 08:28 RDW 14.6 % (11.5-14.5) H 01/24/19 08:28 Neutrophils # 10.2 K/mcL (1.6-8.9) H 01/24/19 08:28 Lymphocytes # 0.2 K/mcL (0.6-4.6) L 01/24/19 08:28 Sodium 135 mEq/L (136-145) L 01/24/19 08:28 Potassium 3.3 mEq/L (3.5-5.1) L 01/24/19 08:28 Glucose 109 mg/dL (70-105) H 01/24/19 08:28 Calculated Osmolality 279 (280-300) L 01/24/19 08:28 Calcium 8.1 mg/dL (8.6-10.3) L 01/24/19 08:28 Diabetes panel 01/23/19 01/24/19 Range/Units 21:14 08:28 Sodium 135 L (136-145) mEq/L Potassium 3.4 L 3.3 L (3.5-5.1) mEq/L Chloride 100 (98-107) mEq/L Carbon Dioxide 23 (23-29) mEq/L BUN 8 (6-20) mg/dL Creatinine 0.74 (0.70-1.30) mg/dL Glucose 109 H (70-105) mg/dL Calcium 8.1 L (8.6-10.3) mg/dL Calcium panel 01/24/19 Range/Units 08:28 Calcium 8.1 L (8.6-10.3) mg/dL Pituitary panel 01/23/19 01/24/19 Range/Units 21:14 08:28 Sodium 135 L (136-145) mEq/L Potassium 3.4 L 3.3 L (3.5-5.1) mEq/L Chloride 100 (98-107) mEq/L Carbon Dioxide 23 (23-29) mEq/L BUN 8 (6-20) mg/dL Creatinine 0.74 (0.70-1.30) mg/dL Glucose 109 H (70-105) mg/dL Calcium 8.1 L (8.6-10.3) mg/dL Adrenal panel 01/23/19 01/24/19 Range/Units 21:14 08:28 Sodium 135 L (136-145) mEq/L Potassium 3.4 L 3.3 L (3.5-5.1) mEq/L Chloride 100 (98-107) mEq/L Carbon Dioxide 23 (23-29) mEq/L BUN 8 (6-20) mg/dL Creatinine 0.74 (0.70-1.30) mg/dL Glucose 109 H (70-105) mg/dL Calcium 8.1 L (8.6-10.3) mg/dL All other labs normal.
[2019-01-25] MEDS: Piperacillin/Tazobactam 3.375 GM in 0.9 % Sodium Chloride Mini Bag 100 ML IVPB SCH ×3 (00:03→18:35)
[2019-01-25] MEDS: 0.9 % Sodium Chloride 1,000 ML IVC SCH (04:10)
[2019-01-25 04:51] LABS: Basophils % 0.1 %; Eosinophils % 0.1 %; Hematocrit 26.1 % (37.5-50.1); Hemoglobin 7.9 g/dL (12.9-16.9); Immature Granulocytes % 0.8 % (0-4); Lymphocytes # 0.3 K/mcL (0.6-4.6); Lymphocytes % 3.6 %; Mean Corpuscular HGB Conc 30.3 g/dL (31.6-35.5); Mean Corpuscular Volume 82.6 fL (83.0-100.0); Mean Platelet Volume 10.4 fL (9.4-12.4); Monocytes # 0.7 K/mcL (0.0-1.3); Monocytes % 8.4 %; Neutrophils # 7.6 K/mcL (1.6-8.9); Platelet Count 262 K/mcL (140-400); Red Blood Count 3.16 M/mcL (4.19-5.50); Red Cell Distribution Width 14.6 % (11.5-14.5); White Blood Count 8.7 K/mcL (4.3-11.1)
[2019-01-25 05:11] LABS: BUN/Creatinine Ratio 11 (6-26); Blood Urea Nitrogen 8 mg/dL (6-20); Carbon Dioxide 22 mEq/L (23-29); Chloride 101 mEq/L (98-107); Glucose 94 mg/dL (70-105); Osmolality,Calculated 280 (280-300); Potassium 3.3 mEq/L (3.5-5.1); Sodium 136 mEq/L (136-145); eGFR For African Americans > 60 (> 60); eGFR For Non-African Americans > 60 (> 60)
[2019-01-25] MEDS: *HR* Heparin 5,000 UNIT/ML VIAL SQ SCH ×2 (06:28→18:35)
[2019-01-25] MEDS: Pantoprazole 40 MG VIAL IVP SCH (08:10)
[2019-01-25 08:45] LABS: ABG Base Excess -1 mEq/L (-2 to 3); ABG HCO3 23 mEq/L (21-27); ABG Oxygen Saturation 93 % (95-98); ABG PCO2 37 mmHg (35-45); ABG PH 7.41 pH Units (7.32-7.45); ABG PO2 67 mmHg (85-104); ABG TCO2 24 mEq/L (20-26)
[2019-01-25] MEDS ORDERED: Potassium Chloride 40 MEQ, Lidocaine 1% 2 ML in D5% in Water 500 ML IVPB ONE (08:46)
--- NOTE | 2019-01-25 09:25 | Urology Progress Note ---
<Coco Chapin N - Last Filed: 01/25/19 09:20> Date of Encounter: 01/25/19 Time of Encounter: 08:50 - Assessment and Plan (1) Bladder spasm Current Visit: Yes Status: Acute (2) Urethral injury Current Visit: Yes Status: Acute Assessment and plan: Patient is a 58-year-old male who presents with a urethral injury. Patient has indwelling Nguyễn catheter from 11/21/2018. Patient underwent a CT cystogram revealing a defect in the prostatic urethra and subsequent fluid collection posterior to the patient's bladder. Retrograde urethrogram has been canceled for now. We will proceed with exchanging patient's catheter this afternoon and continue to closely follow patient. Qualifiers: Encounter type: subsequent encounter Qualified Code(s): S37.30XD - Unspecified injury of urethra, subsequent encounter Progress Note Narrative: Patient seen and examined lying in bed in no apparent distress. Patient admits to continued abdominal discomfort. He denies any fever, chills or flank pain. Nguyễn catheter is indwelling and draining transparent, clear yellow urine into bedside bag. Objective Initial Vital Signs Temp Pulse Resp BP Pulse Ox 98.0 F 67 16 106/61 98 01/22/19 21:25 01/22/19 21:25 01/22/19 21:25 01/22/19 21:25 01/22/19 21:25 - General physical appearance Present: no distress, moderate pain - Respiratory Present: normal expansion, normal respiratory effort - Abdomen Present: soft, tender, wound (Ostomy site benign). Absent: distended - Genitourinary Urine Appearance: Present: Clear - Integumentary Present: no rash, no abnormal pigmentation - Musculoskeletal Present: normal posture - Psychiatric Present: oriented to time, oriented to person, oriented to place, speech is normal, memory intact - Labs 01/25/19 04:24 01/25/19 04:24 Diabetes panel 01/25/19 Range/Units 04:24 Sodium 136 (136-145) mEq/L Potassium 3.3 L (3.5-5.1) mEq/L Chloride 101 (98-107) mEq/L Carbon Dioxide 22 L (23-29) mEq/L BUN 8 (6-20) mg/dL Creatinine 0.72 (0.70-1.30) mg/dL Glucose 94 (70-105) mg/dL Calcium 8.0 L (8.6-10.3) mg/dL Calcium panel 01/25/19 Range/Units 04:24 Calcium 8.0 L (8.6-10.3) mg/dL Pituitary panel 01/25/19 Range/Units 04:24 Sodium 136 (136-145) mEq/L Potassium 3.3 L (3.5-5.1) mEq/L Chloride 101 (98-107) mEq/L Carbon Dioxide 22 L (23-29) mEq/L BUN 8 (6-20) mg/dL Creatinine 0.72 (0.70-1.30) mg/dL Glucose 94 (70-105) mg/dL Calcium 8.0 L (8.6-10.3) mg/dL Adrenal panel 01/25/19 Range/Units 04:24 Sodium 136 (136-145) mEq/L Potassium 3.3 L (3.5-5.1) mEq/L Chloride 101 (98-107) mEq/L Carbon Dioxide 22 L (23-29) mEq/L BUN 8 (6-20) mg/dL Creatinine 0.72 (0.70-1.30) mg/dL Glucose 94 (70-105) mg/dL Calcium 8.0 L (8.6-10.3) mg/dL Consult Discharge Plan - Plan Instructions: Iron Supplements (By mouth), Colostomy Care (DC), Nguyễn Catheter Placement and Care (DC), Iron Deficiency Anemia (DC), Negative Pressure Wound Therapy (DC) Additional Instructions: General Surgical Discharge Instructions 1. No pushing, pulling, or lifting greater than 15 lbs for 6 weeks . 2. You may remove your dressings and shower beginning today, but no tub baths, soaking, or swimming for 2 weeks. 3. No driving until otherwise specified and then you may resume driving when you are off narcotics and are safe to react in a car. 4. Take ibuprofen every 8 hours for discomfort and apply ice to the abdomen 20 minutes every hour that your awake. Take 1000 mg acetaminophen approximately 3 hours after taking the ibuprofen if you're still having discomfort and If this does not relieve discomfort, you may take the as needed Oxycodone. Eat a small snack with pain medication as this will help reduce the risk of nausea. Take narcotics as directed. Do not take more narcotics then directed and do not share your narcotics with any other person. Do not drink alcohol while on narcotics. You can take the Zofran/ondansetron if needed for nausea or with a dose of narcotics to prevent nausea. Limit the amount of narcotics that you take as continued use can result in addiction. Discuss long-term narcotic use with your primary care provider or pain management physician. 5. Take stool softeners (Colace) or a water based laxative (Miralax) while taking narcotics. You may hold for loose stools. You may find that you are more constipated with the iron supplementation so you may need to continue MiraLAX daily. 6. Report any fevers greater than 100.5F, increase abdominal discomfort, drainage that looks like pus, increased redness or pain at the surgical site, or any vomiting. 7. Report any pain in the calves, shortness of breath, or rapid heartbeat. 8. Follow-up in the office as directed. 9. Follow-up with urology as directed. Continue Nguyễn catheter care. 10. Continue wound VAC to the left lower quadrant. Please note we are recommending stop black foam. Start white foam to the area. This has been communicated to home healthcare and has been ordered from [facility]. Report any fever, chills, drainage from your surgery sites, or return of previous symptoms. STOP Benzapril until seen by your primary care provider and advised otherwise. Also follow-up with your primary care provider to have your iron levels rechecke d within the next 30 days. Referrals: Sawyer Cobos DO [Partnered Physician] - 01/31/19 2:05 pm Nancy Humphries CNP [Primary Care Provider] - (Please schedule hospital follow- up in the next 1-2 weeks) Prescriptions: Ferrous Sulfate 325 mg PO BID #60 tablet Polyethylene Glycol 3350 [MiraLAX Powder Bulk 17.9 Oz] 1 scoop PO DAILY 30 Days #510 gm OxyCODONE Immed Rel [Roxicodone 5 MG] 5 mg PO Q6HR PRN 7 Days #28 tablet PRN Reason: Severe Pain <Mat Perez - Last Filed: 01/25/19 16:27> Date of Encounter: 01/25/19 Progress Note Narrative: Patient was seen and examined independently. I agree with the plan as written by Coco Chapin.. Patient's catheter will be changed today. We will continue to follow along. Patient was prepped and draped in normal sterile fashion. This was after the prior catheter had been removed and 60 mL's of saline placed into the patient's bladder. I then was able to negotiate an 18-[place] coude catheter into the patient's bladder. There was some resistance around the patient's prostate but clear fluid was returned consistent with irrigation placed into the patient's bladder. Objective Initial Vital Signs Temp Pulse Resp BP Pulse Ox 98.0 F 67 16 106/61 98 01/22/19 21:25 01/22/19 21:25 01/22/19 21:25 01/22/19 21:25 01/22/19 21:25 - Labs 01/25/19 04:24 01/25/19 04:24 Diabetes panel 01/25/19 Range/Units 04:24 Sodium 136 (136-145) mEq/L Potassium 3.3 L (3.5-5.1) mEq/L Chloride 101 (98-107) mEq/L Carbon Dioxide 22 L (23-29) mEq/L BUN 8 (6-20) mg/dL Creatinine 0.72 (0.70-1.30) mg/dL Glucose 94 (70-105) mg/dL Calcium 8.0 L (8.6-10.3) mg/dL Calcium panel 01/25/19 Range/Units 04:24 Calcium 8.0 L (8.6-10.3) mg/dL Pituitary panel 01/25/19 Range/Units 04:24 Sodium 136 (136-145) mEq/L Potassium 3.3 L (3.5-5.1) mEq/L Chloride 101 (98-107) mEq/L Carbon Dioxide 22 L (23-29) mEq/L BUN 8 (6-20) mg/dL Creatinine 0.72 (0.70-1.30) mg/dL Glucose 94 (70-105) mg/dL Calcium 8.0 L (8.6-10.3) mg/dL Adrenal panel 01/25/19 Range/Units 04:24 Sodium 136 (136-145) mEq/L Potassium 3.3 L (3.5-5.1) mEq/L Chloride 101 (98-107) mEq/L Carbon Dioxide 22 L (23-29) mEq/L BUN 8 (6-20) mg/dL Creatinine 0.72 (0.70-1.30) mg/dL Glucose 94 (70-105) mg/dL Calcium 8.0 L (8.6-10.3) mg/dL
[2019-01-25] MEDS: Simethicone 80 MG TAB.CHEW PO PRN ×2 (09:44→18:41)
[2019-01-25 10:11] LABS: Iron < 10 mcg/dL (65-175); Transferrin 102 mg/dL (203-362)
[2019-01-25] MEDS ORDERED: Iron Sucrose Complex 400 MG in 0.9 % Sodium Chloride 250 ML IVPB ONE (10:47)
[2019-01-25] MEDS: Acetaminophen IV 1,000 MG/100 ML INFUS..BTL IVPB SCH ×3 (13:05→18:38)
[2019-01-25] MEDS: hydroCHLOROthiazide 25 MG TABLET PO SCH (13:09)
[2019-01-25] MEDS: Ketorolac 30 MG/ML VIAL IVP SCH ×2 (13:09→20:25)
[2019-01-25] MEDS: Ondansetron 4 MG/2 ML VIAL IVP PRN (13:10)
[2019-01-25] MEDS ORDERED: *HR* Promethazine 25 MG/ML VIAL IVP ONE (14:55)
[2019-01-25] MEDS ORDERED: *HR* FentaNYL (PF) 100 MCG/2 ML VIAL IVP ONE (14:55)
--- NOTE | 2019-01-25 15:29 | General Surgery Progress Note ---
Date of Encounter: 01/25/19 Time of Encounter: 15:26 - Assessment and Plan (1) Abdominal wall abscess Current Visit: Yes Status: Acute Date of procedure: 01/24/19 Pre-op diagnosis: Left abdominal wall abscess Post-op diagnosis: same Procedure: Diagnostic laparoscopy with splenic flexure takedown and partial descending colectomy followed by revision of colostomy Wound VAC placement Anesthesia: GETA Surgeon: Sawyer Cobos POD #1 as above. Pain is better controlled today. He is having flatus per ostom y. Plan: Continue supportive care and discomfort management while awaiting full return of bowel function Continue G.I. and DVT prophylaxis Protonix and hep SQ Incentive spirometry 10 times every hour while awake Out of bed to chair TID, do not offer meal trays while in the bed Activity as tolerated Apply ice 20 minutes on 20 minutes off as needed Ostomy care Repeat am labs Continue IV ATBX PT/OT D/c planning in the next 24-48 hours pending clinical course (2) Urethral injury Current Visit: Yes Status: Acute Mangement per urology. Continue resendez cath. DO NOT REMOVE PRIOR TO D/C Qualifiers: Encounter type: subsequent encounter Qualified Code(s): S37.30XD - Unsp ecified injury of urethra, subsequent encounter (3) HTN, goal below 130/80 Current Visit: Yes Status: Acute pt reports he feels that his "falling/collapse" Monday was related to taking his BP meds when his BP was in the 1teens, and then later felt weak, fell to his knees, and couldn't get back up. HCTZ resumed. SHELLEY held (4) Anemia Current Visit: Yes Status: Acute Venofer 400 mg today and tomorrow. D/c on Iron supplement Qualifiers: Anemia type: iron deficiency Iron deficiency anemia type: unspecified iron deficiency Qualified Code(s): D50.9 - Iron deficiency anemia, unspecified Subjective Patient reports: no new complaints, still having pain, pain is less, tolerating liquids well (but decreased appetite), voiding w/o difficulty (per resendez ), flatus, bowel movement, afebrile Narrative: feels weak and tired Objective Vital Signs - Last 8 Hours Temp Pulse Resp BP Pulse Ox 01/25/19 15:24 98.0 F 63 16 129/78 96 01/25/19 10:37 98.3 F 63 17 137/88 95 01/25/19 07:40 97.7 F 62 18 131/80 94 Intake and Output 01/24/19 01/25/19 01/25/19 23:59 07:59 15:59 Intake Total 1100 / 1300 1100 / 1300 200 / 1300 Output Total 500 / 850 350 / 850 Balance 1100 / 850 600 / 450 -150 / 450 Intake: IV Fluids 1100 / 1300 1100 / 1300 200 / 1300 0.9 % Sodium Chloride 1,000 ML 1000 / 1000 1000 / 1000 @ 100 mls/hr IVC .Q10H BRENDEN Rx#: [id number] Ofirmev 1,000 mg/100 ml 1,000 100 / 100 mg In 100 ml @ 400 mls/hr IVPB Q6HR BRENDEN Rx#:[id number] Zosyn 3.375 GM In 0.9 % Sodium 100 / 200 100 / 200 100 / 200 Chloride (Mini-Bag +) 100 ML @ 25 mls/hr IVPB Q8HR BRENDEN Rx#: [id number] Oral 0 / 0 Output: Urine 0 / 0 Stool 0 / 0 0 / 0 Catheter 500 / 850 350 / 850 Wound Drainage 0 / 0 Left Lower Abdomen 0 / 0 Other: Weight 117.6 kg Patient Weight 01/25/19 23:59 Weight 117.6 kg - General physical appearance well nourished, no distress, moderate pain, chronically ill, obese, other (pale) - ENT normal nares, atraumatic, normocephalic - Neck Neck exam: trachea midline - Respiratory normal expansion, normal respiratory effort - Cardiovascular Cardiovascular exam: Present: RRR - Abdomen Abdomen: Present: bowel sounds present, soft, tender (expected postopeative), wound (stoma is pink and moist.) Hernia: none - Incision Incision: Present: clean and dry, intact - Integumentary no rash - Neurologic normal coordination, normal sensation - Musculoskeletal normal posture - Psychiatric oriented to time, oriented to person, oriented to place, speech is normal, memory intact - Labs 01/25/19 04:24 01/25/19 04:24 Diabetes panel 01/25/19 Range/Units 04:24 Sodium 136 (136-145) mEq/L Potassium 3.3 L (3.5-5.1) mEq/L Chloride 101 (98-107) mEq/L Carbon Dioxide 22 L (23-29) mEq/L BUN 8 (6-20) mg/dL Creatinine 0.72 (0.70-1.30) mg/dL Glucose 94 (70-105) mg/dL Calcium 8.0 L (8.6-10.3) mg/dL Calcium panel 01/25/19 Range/Units 04:24 Calcium 8.0 L (8.6-10.3) mg/dL Pituitary panel 01/25/19 Range/Units 04:24 Sodium 136 (136-145) mEq/L Potassium 3.3 L (3.5-5.1) mEq/L Chloride 101 (98-107) mEq/L Carbon Dioxide 22 L (23-29) mEq/L BUN 8 (6-20) mg/dL Creatinine 0.72 (0.70-1.30) mg/dL Glucose 94 (70-105) mg/dL Calcium 8.0 L (8.6-10.3) mg/dL Adrenal panel 01/25/19 Range/Units 04:24 Sodium 136 (136-145) mEq/L Potassium 3.3 L (3.5-5.1) mEq/L Chloride 101 (98-107) mEq/L Carbon Dioxide 22 L (23-29) mEq/L BUN 8 (6-20) mg/dL Creatinine 0.72 (0.70-1.30) mg/dL Glucose 94 (70-105) mg/dL Calcium 8.0 L (8.6-10.3) mg/dL Consult Discharge Plan - Plan Referrals: Nancy Humphries CNP [Primary Care Provider] -
--- NOTE | 2019-01-25 16:26 | Physician Discharge Referral ---
Home Health/Hosp Referral Info Transfer to: Home Health Attending Provider: Dr. 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 For more information, call the [place] Tobacco Quit Line at 4-271-ARSJ-NOW. - Dressing/Wound Care Type of Dressing/Treatments w/Frequency: LLQ Wound Vac: White foam the area. Maintain suction -125 mmhg. Every other day [place] changes to begin Monday01/28/2019 Colostomy Care as per previous orders Left abdomen near colostomy. Daily dry dressing changes. - Diet/Nutrition Diet/Nutrition Orders: Regular - Activity Activity Orders: Up ad winifred - Services Needed Following services are medically necessary services: Nursing, Physical Therapy, Occupational Therapy Home Care Orders: General Surgical Discharge Instructions 1. No pushing, pulling, or lifting greater than 15 lbs for 6 weeks . 2. You may remove your dressings and shower beginning today, but no tub baths, soaking, or swimming for 2 weeks. 3. No driving until otherwise specified and then you may resume driving when you are off narcotics and are safe to react in a car. 4. Take ibuprofen every 8 hours for discomfort and apply ice to the abdomen 20 minutes every hour that your awake. Take 1000 mg acetaminophen approximately 3 hours after taking the ibuprofen if you're still having discomfort and If this does not relieve discomfort, you may take the as needed Oxycodone. Eat a small snack with pain medication as this will help reduce the risk of nausea. Take narcotics as directed. Do not take more narcotics then directed and do not share your narcotics with any other person. Do not drink alcohol while on narcotics. You can take the Zofran/ondansetron if needed for nausea or with a dose of narcotics to prevent nausea. Limit the amount of narcotics that you take as continued use can result in addiction. Discuss long-term narcotic use with your primary care provider or pain management physician. 5. Take stool softeners (Colace) or a water based laxative (Miralax) while taking narcotics. You may hold for loose stools. You may find that you are more constipated with the iron supplementation so you may need to continue MiraLAX daily. 6. Report any fevers greater than 100.5F, increase abdominal discomfort, drainage that looks like pus, increased redness or pain at the surgical site, or any vomiting. 7. Report any pain in the calves, shortness of breath, or rapid heartbeat. 8. Follow-up in the office as directed. 9. Follow-up with urology as directed. Continue Nguyễn catheter care. 10. Continue wound VAC to the left lower quadrant. Please note we are recommending stop black foam. Start white foam to the area. This has been communicated to home healthcare and has been ordered from [facility]. Report any fever, chills, drainage from your surgery sites, or return of previous symptoms. STOP Benzapril until seen by your primary care provider and advised otherwise. Also follow-up with your primary care provider to have your iron levels rechecked within the next 30 days. Activity per PT/OT recommendations - Transfer Medications Prescriptions: Ferrous Sulfate 325 mg PO BID #60 tablet Polyethylene Glycol 3350 [MiraLAX Powder Bulk 17.9 Oz] 1 scoop PO DAILY 30 Days #510 gm OxyCODONE Immed Rel [Roxicodone 5 MG] 5 mg PO Q6HR PRN 7 Days #28 tablet PRN Reason: Severe Pain Home Medications: hydroCHLOROthiazide [Hydrochlorothiazide] 25 mg PO DAILY 11/21/18 [History] Docusate Sodium [Colace] 100 mg PO BID #60 capsule 11/23/18 [Rx] Ibuprofen 800 mg PO Q8H PRN #30 tablet 11/23/18 [Rx] Ondansetron ODT [Zofran ODT] 4 mg SL Q4HR PRN #15 tab.rapdis 11/23/18 [Rx] Oxybutynin [Ditropan] 5 mg PO TID 01/16/19 [History] Zolpidem [Ambien] 10 mg PO HS 01/16/19 [History] OxyCODONE/APAP 5/325 [Percocet 5/325 MG] 1 each PO Q6HR PRN 7 Days #14 tablet 01/18/19 [Rx] Potassium Chloride 20 meq PO DAILY 01/23/19 [History] Ferrous Sulfate 325 mg PO BID #60 tablet 01/25/19 [Rx] OxyCODONE Immed Rel [Roxicodone 5 MG] 5 mg PO Q6HR PRN 7 Days #28 tablet 01/25/19 [Rx] Polyethylene Glycol 3350 [MiraLAX Powder Bulk 17.9 Oz] 1 scoop PO DAILY 30 Days #510 gm 01/25/19 [Rx] Allergies/Adverse Reactions: Allergy/AdvReac Type Severity Reaction Status Date / Time No Known Allergies Allergy Verified 01/16/19 09:30 Certification: Further, I certify that my clinical findings support that this patient is homebound (i.e. absences from home require considerable and taxing effort and are for medical reasons or sabianism services or infrequently or short duration when for other reasons) because: Homebound Reason: Post-surgery restriction and or conditions limit ability to leave home, Leaving home requires considerable and taxing effort due to condition Attestation: My signature below is to certify that this patient is under my care and that I, or nurse practitioner, or a physician's commercial real estate assistant working with me, has a [id number] encounter with this patient.
[2019-01-26] MEDS: Ketorolac 30 MG/ML VIAL IVP SCH ×3 (00:29→09:22)
[2019-01-26] MEDS: 0.9 % Sodium Chloride 1,000 ML IVC SCH ×3 (00:35→10:45)
[2019-01-26] MEDS: Acetaminophen IV 1,000 MG/100 ML INFUS..BTL IVPB SCH ×3 (00:35→12:26)
[2019-01-26] MEDS: Simethicone 80 MG TAB.CHEW PO PRN (00:42)
[2019-01-26] MEDS: Piperacillin/Tazobactam 3.375 GM in 0.9 % Sodium Chloride Mini Bag 100 ML IVPB SCH ×2 (01:45→09:22)
[2019-01-26] MEDS: *HR* Heparin 5,000 UNIT/ML VIAL SQ SCH (05:00)
[2019-01-26] MEDS: Pantoprazole 40 MG VIAL IVP SCH (09:21)
[2019-01-26] MEDS: hydroCHLOROthiazide 25 MG TABLET PO SCH (09:22)
--- NOTE | 2019-01-26 09:42 | Urology Progress Note ---
Date of Encounter: 01/26/19 Time of Encounter: 09:41 - Assessment and Plan (1) Urethral injury Current Visit: Yes Status: Chronic Assessment and plan: Catheter draining well. Keep catheter in place. Patient needs follow-up with Dr. Delgado in 3-4 weeks. Qualifiers: Encounter type: subsequent encounter Qualified Code(s): S37.30XD - Unspecified injury of urethra, subsequent encounter Progress Note Narrative: Patient seen this morning. Patient feeling great. Catheter changed yesterday. Objective Initial Vital Signs Temp Pulse Resp BP Pulse Ox 98.0 F 67 16 106/61 98 01/22/19 21:25 01/22/19 21:25 01/22/19 21:25 01/22/19 21:25 01/22/19 21:25 - General physical appearance Present: well developed, well nourished - Abdomen Present: soft. Absent: tender - Labs 01/25/19 04:24 01/25/19 04:24 Consult Discharge Plan - Plan Instructions: Iron Supplements (By mouth), Colostomy Care (DC), Nguyễn Catheter Placement and Care (DC), Iron Deficiency Anemia (DC), Negative Pressure Wound Therapy (DC) Additional Instructions: General Surgical Discharge Instructions 1. No pushing, pulling, or lifting greater than 15 lbs for 6 weeks . 2. You may remove your dressings and shower beginning today, but no tub baths, soaking, or swimming for 2 weeks. 3. No driving until otherwise specified and then you may resume driving when you are off narcotics and are safe to react in a car. 4. Take ibuprofen every 8 hours for discomfort and apply ice to the abdomen 20 minutes every hour that your awake. Take 1000 mg acetaminophen approximately 3 hours after taking the ibuprofen if you're still having discomfort and If this does not relieve discomfort, you may take the as needed Oxycodone. Eat a small snack with pain medication as this will help reduce the risk of nausea. Take narcotics as directed. Do not take more narcotics then directed and do not share your narcotics with any other person. Do not drink alcohol while on narcotics. You can take the Zofran/ondansetron if needed for nausea or with a dose of narcotics to prevent nausea. Limit the amount of narcotics that you take as continued use can result in addiction. Discuss long-term narcotic use with your primary care provider or pain management physician. 5. Take stool softeners (Colace) or a water based laxative (Miralax) while taking narcotics. You may hold for loose stools. You may find that you are more constipated with the iron supplementation so you may need to continue MiraLAX daily. 6. Report any fevers greater than 100.5F, increase abdominal discomfort, drainage that looks like pus, increased redness or pain at the surgical site, or any vomiting. 7. Report any pain in the calves, shortness of breath, or rapid heartbeat. 8. Follow-up in the office as directed. 9. Follow-up with urology as directed. Continue Nguyễn catheter care. 10. Continue wound VAC to the left lower quadrant. Please note we are recommending stop black foam. Start white foam to the area. This has been communicated to home healthcare and has been ordered from [facility]. Report any fever, chills, drainage from your surgery sites, or return of previous symptoms. STOP Benzapril until seen by your primary care provider and advised otherwise. Also follow-up with your primary care provider to have your iron levels rechecked within the next 30 days. Referrals: Sawyer Cobos DO [Partnered Physician] - 01/31/19 2:05 pm Nancy Humphries, CASEY [Primary Care Provider] - (Please schedule hospital follow- up in the next 1-2 weeks) Prescriptions: Ferrous Sulfate 325 mg PO BID #60 tablet Polyethylene Glycol 3350 [MiraLAX Powder Bulk 17.9 Oz] 1 scoop PO DAILY 30 Days #510 gm OxyCODONE Immed Rel [Roxicodone 5 MG] 5 mg PO Q6HR PRN 7 Days #28 tablet PRN Reason: Severe Pain
[2019-01-26 10:15] LABS: Basophils % 0.1 %; Eosinophils # 0.1 K/mcL (0.0-0.6); Eosinophils % 1.3 %; Hematocrit 24.9 % (37.5-50.1); Hemoglobin 7.7 g/dL (12.9-16.9); Immature Granulocytes % 2.5 % (0-4); Lymphocytes # 0.3 K/mcL (0.6-4.6); Lymphocytes % 3.1 %; Mean Corpuscular HGB Conc 30.9 g/dL (31.6-35.5); Mean Corpuscular Hemoglobin 25.6 pg (28.0-33.3); Mean Corpuscular Volume 82.7 fL (83.0-100.0); Mean Platelet Volume 10.5 fL (9.4-12.4); Monocytes # 0.7 K/mcL (0.0-1.3); Monocytes % 7.9 %; Neutrophils # 7.1 K/mcL (1.6-8.9); Platelet Count 234 K/mcL (140-400); Red Blood Count 3.01 M/mcL (4.19-5.50); Segmented Neutrophils % 85.1 %; White Blood Count 8.3 K/mcL (4.3-11.1)
[2019-01-26 10:36] LABS: BUN/Creatinine Ratio 12 (6-26); Blood Urea Nitrogen 8 mg/dL (6-20); Calcium 7.7 mg/dL (8.6-10.3); Carbon Dioxide 23 mEq/L (23-29); Chloride 101 mEq/L (98-107); Glucose 109 mg/dL (70-105); Osmolality,Calculated 279 (280-300); Potassium 3.1 mEq/L (3.5-5.1); Sodium 135 mEq/L (136-145); eGFR For African Americans > 60 (> 60); eGFR For Non-African Americans > 60 (> 60)
--- NOTE | 2019-01-26 12:21 | General Surgery Progress Note ---
Date of Encounter: 01/26/19 Time of Encounter: 12:20 - Assessment and Plan (1) Diverticulitis Current Visit: No Status: Acute Patient is doing much better this point. He is now tolerating a regular diet. We will plan for discharge today. Subjective Patient reports: no new complaints Objective Vital Signs - Last 8 Hours Temp Pulse Resp BP Pulse Ox 01/26/19 08:14 97.7 F 59 15 125/73 97 Intake and Output 01/25/19 01/26/19 01/26/19 23:59 07:59 15:59 Intake Total 200 / 3022 200 / 200 Output Total 400 / 1250 350 / 950 600 / 950 Balance -200 / 1772 -150 / -750 -600 / -750 Intake: IV Fluids 200 / 3022 200 / 200 Ofirmev 1,000 mg/100 ml 1,000 100 / 200 100 / 100 mg In 100 ml @ 400 mls/hr IVPB Q6HR [facility]END[facility] Rx#:[id number] Zosyn 3.375 GM In 0.9 % Sodium 100 / 300 100 / 100 Chloride (Mini-Bag +) 100 ML @ 25 mls/hr IVPB Q8HR [facility] Rx#: [id number] Output: Catheter 400 / 1250 300 / 900 600 / 900 Wound Drainage 50 / 50 Left Lower Abdomen 50 / 50 - Labs 01/26/19 09:36 01/26/19 09:36 Diabetes panel 01/26/19 Range/Units 09:36 Sodium 135 L (136-145) mEq/L Potassium 3.1 L (3.5-5.1) mEq/L Chloride 101 (98-107) mEq/L Carbon Dioxide 23 (23-29) mEq/L BUN 8 (6-20) mg/dL Creatinine 0.67 L (0.70-1.30) mg/dL Glucose 109 H (70-105) mg/dL Calcium 7.7 L (8.6-10.3) mg/dL Calcium panel 01/26/19 Range/Units 09:36 Calcium 7.7 L (8.6-10.3) mg/dL Pituitary panel 01/26/19 Range/Units 09:36 Sodium 135 L (136-145) mEq/L Potassium 3.1 L (3.5-5.1) mEq/L Chloride 101 (98-107) mEq/L Carbon Dioxide 23 (23-29) mEq/L BUN 8 (6-20) mg/dL Creatinine 0.67 L (0.70-1.30) mg/dL Glucose 109 H (70-105) mg/dL Calcium 7.7 L (8.6-10.3) mg/dL Adrenal panel 01/26/19 Range/Units 09:36 Sodium 135 L (136-145) mEq/L Potassium 3.1 L (3.5-5.1) mEq/L Chloride 101 (98-107) mEq/L Carbon Dioxide 23 (23-29) mEq/L BUN 8 (6-20) mg/dL Creatinine 0.67 L (0.70-1.30) mg/dL Glucose 109 H (70-105) mg/dL Calcium 7.7 L (8.6-10.3) mg/dL Consult Discharge Plan - Plan Instructions: Iron Supplements (By mouth), Colostomy Care (DC), Nguyễn Catheter Placement and Care (DC), Iron Deficiency Anemia (DC), Negative Pressure Wound Therapy (DC) Additional Instructions: General Surgical Discharge Instructions 1. No pushing, pulling, or lifting greater than 15 lbs for 6 weeks . 2. You may remove your dressings and shower beginning today, but no tub baths, soaking, or swimming for 2 weeks. 3. No driving until otherwise specified and then you may resume driving when you are off narcotics and are safe to react in a car. 4. Take ibuprofen every 8 hours for discomfort and apply ice to the abdomen 20 minutes every hour that your awake. Take 1000 mg acetaminophen approximately 3 hours after taking the ibuprofen if you're still having discomfort and If this does not relieve discomfort, you may take the as needed Oxycodone. Eat a small snack with pain medication as this will help reduce the risk of nausea. Take narcotics as directed. Do not take more narcotics then directed and do not share your narcotics with any other person. Do not drink alcohol while on narcotics. You can take the Zofran/ondansetron if needed for nausea or with a dose of narcotics to prevent nausea. Limit the amount of narcotics that you take as continued use can result in addiction. Discuss long-term narcotic use with your primary care provider or pain management physician. 5. Take stool softeners (Colace) or a water based laxative (Miralax) while taking narcotics. You may hold for loose stools. You may find that you are mo re constipated with the iron supplementation so you may need to continue MiraLAX daily. 6. Report any fevers greater than 100.5F, increase abdominal discomfort, drainage that looks like pus, increased redness or pain at the surgical site, or any vomiting. 7. Report any pain in the calves, shortness of breath, or rapid heartbeat. 8. Follow-up in the office as directed. 9. Follow-up with urology as directed. Continue Nguyễn catheter care. 10. Continue wound VAC to the left lower quadrant. Please note we are recommending stop black foam. Start white foam to the area. This has been communicated to home healthcare and has been ordered from [facility]. Report any fever, chills, drainage from your surgery sites, or return of previous symptoms. STOP Benzapril until seen by your primary care provider and advised otherwise. Also follow-up with your primary care provider to have your iron levels rechecked within the next 30 days. Referrals: Sawyer Cobos DO [Partnered Physician] - 01/31/19 2:05 pm Nancy Humphries, CASEY [Primary Care Provider] - (Please schedule hospital follow-u p in the next 1-2 weeks) Prescriptions: Ferrous Sulfate 325 mg PO BID #60 tablet Polyethylene Glycol 3350 [MiraLAX Powder Bulk 17.9 Oz] 1 scoop PO DAILY 30 Days #510 gm OxyCODONE Immed Rel [Roxicodone 5 MG] 5 mg PO Q6HR PRN 7 Days #28 tablet PRN Reason: Severe Pain
[2019-01-26 13:54] VITALS: BP 120/74
[2019-01-27] MEDS ORDERED: Iron Sucrose Complex 400 MG in 0.9 % Sodium Chloride 250 ML IVPB ONE (09:00)
--- NOTE | 2019-01-31 10:47 | Discharge Summary ---
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 - Hospital Course Hospital course: Mr. Garcia is a 58 year old male - Time Spent with Patient Total time spent providing and/or coordinating discharge services: - Discharge Medications Prescriptions: New Ferrous Sulfate 325 mg PO BID #60 tablet Polyethylene Glycol 3350 [MiraLAX Powder Bulk 17.9 Oz] 1 scoop PO DAILY 30 Days #510 gm OxyCODONE Immed Rel [Roxicodone 5 MG] 5 mg PO Q6HR PRN 7 Days #28 tablet PRN Reason: Severe Pain Continued hydroCHLOROthiazide [Hydrochlorothiazide] 25 mg PO DAILY Docusate Sodium [Colace] 100 mg PO BID #60 capsule Ibuprofen 800 mg PO Q8H PRN #30 tablet PRN Reason: Postsurgical pain Ondansetron ODT [Zofran ODT] 4 mg SL Q4HR PRN #15 tab.rapdis PRN Reason: Postsurgical nausea Zolpidem [Ambien] 10 mg PO HS Oxybutynin [Ditropan] 5 mg PO TID OxyCODONE/APAP 5/325 [Percocet 5/325 MG] 1 each PO Q6HR PRN 7 Days #14 tablet PRN Reason: Pain Potassium Chloride 20 meq PO DAILY Discontinued Benazepril HCl 40 mg PO DAILY Home Medications: hydroCHLOROthiazide [Hydrochlorothiazide] 25 mg PO DAILY 11/21/18 [History] Docusate Sodium [Colace] 100 mg PO BID #60 capsule 11/23/18 [Rx] Ibuprofen 800 mg PO Q8H PRN #30 tablet 11/23/18 [Rx] Ondansetron ODT [Zofran ODT] 4 mg SL Q4HR PRN #15 tab.rapdis 11/23/18 [Rx] Oxybutynin [Ditropan] 5 mg PO TID 01/16/19 [History] Zolpidem [Ambien] 10 mg PO HS 01/16/19 [History] OxyCODONE/APAP 5/325 [Percocet 5/325 MG] 1 each PO Q6HR PRN 7 Days #14 tablet 01/18/19 [Rx] Potassium Chloride 20 meq PO DAILY 01/23/19 [History] Ferrous Sulfate 325 mg PO BID #60 tablet 01/25/19 [Rx] OxyCODONE Immed Rel [Roxicodone 5 MG] 5 mg PO Q6HR PRN 7 Days #28 tablet 01/25/19 [Rx] Polyethylene Glycol 3350 [MiraLAX Powder Bulk 17.9 Oz] 1 scoop PO DAILY 30 Days #510 gm 01/25/19 [Rx] Allergies/Adverse Reactions: Allergy/AdvReac Type Severity Reaction Status Date / Time No Known Allergies Allergy Verified 01/16/19 09:30 Date of admission: 01/23/19 10:13 Primary care physician: Nancy Humphries CNP Consults: 01/23/19 10:13 Consult to [employer] [CONS] Routine Reason for SW Consult: Patient had home wound vac; Please notify [facility] that wound vac not in use. May send back if needed for now. 01/24/19 10:21 Consult to Urology [CONS] Routine Consulting Provider: Urology Emilia Reason for Consult: Pt of Dr. Delgado. Was supposed to be seen in office Monday (sytogram and possible resendez removal), but patient fell at home. Was taken back to OR 01/23 for colostomy revision, SF takedown, and partial descending colectomy on 01/23/2019. Prior to surgery 01/23 pt reports he had a bladder spasm and could see urine in his colostomy. Time Notified: 10:25 Call Completed: Yes 01/24/19 10:28 Consult to Occupational Therapy [CONS] Stat Comment: Evaluate, develop and implement POC Reason for Consult: Mobilization and discharge planning-pt wants [facility] [place] for therapy, recent fall at home Does patient have active BEDREST order?: No Is patient medically & hemodynamically stable?: Yes Patient assessed for mobility or mobilized this visit?: No Consult to Physical Therapy [CONS] Stat Comment: Evaluate, develop and implement POC Reason for Consult: Mobilization and discharge planning-pt wants [facility] [place] for therapy, recent fall at home Does patient have active BEDREST order?: No Is patient medically & hemodynamically stable?: Yes Patient assessed for mobility or mobilized this visit?: No Discharging clinician: Sawyer Cobos (Venancio Duong, PROFESSOR OF VOICE) Anticipated date of discharge: 01/26/19 - Impressions ITS Impressions Pelvis CT 01/24/19 11:59 IMPRESSION: Postsurgical changes from low anterior resection of the rectum and left lower quadrant colostomy. Defect in the posterior margin of the prostatic urethra with contained perforation. Contrast extravasation through the posterior prostatic urethra defect into a thick-walled collection measuring approximately 17 x 3.7 x 4.4 cm posterior to the bladder and in the presacral space consistent with a large contained urinoma. Extensive surrounding soft tissue thickening and stranding consistent with postsurgical changes. Previously seen multiple other fluid collections resolved since prior likely representing resolved abscesses. Small foci of extraluminal free air in the pelvis likely from prior surgery. The findings were sent to the [facility] at 2:24 pm on 01/24/2019to be communicated to a licensed caregiver. D/ / 01/24/2019 14:32:29 Joel Cullen MD / colette Interpreting Provider: Joel Cullen MD - Patient Status Disposition: Home Health Service Condition: Fair Functional capacity at discharge: independent ambulation Overall status at discharge: patient is progressing back to baseline - Discharge Instructions Instructions: Iron Supplements (By mouth), Colostomy Care (DC), Resendez Catheter Placement and Care (DC), Iron Deficiency Anemia (DC), Negative Pressure Wound Therapy (DC) Follow Up With: Sawyer Cobos DO [Partnered Physician] - 01/31/19 2:05 pm Nancy Humphries, SPOOL CLEANER [Primary Care Provider] - (Please schedule hospital follow- up in the next 1-2 weeks) Additional Instructions: General Surgical Discharge Instructions 1. No pushing, pulling, or lifting greater than 15 lbs for 6 weeks . 2. You may remove your dressings and shower beginning today, but no tub baths, soaking, or swimming for 2 weeks. 3. No driving until otherwise specified and then you may resume driving when you are off narcotics and are safe to react in a car. 4. Take ibuprofen every 8 hours for discomfort and apply ice to the abdomen 20 minutes every hour that your awake. Take 1000 mg acetaminophen approximately 3 hours after taking the ibuprofen if you're still having discomfort and If this does not relieve discomfort, you may take the as needed Oxycodone. Eat a small snack with pain medication as this will help reduce the risk of nausea. Take narcotics as directed. Do not take more narcotics then directed and do not share your narcotics with any other person. Do not drink alcohol while on narcotics. You can take the Zofran/ondansetron if needed for nausea or with a dose of narcotics to prevent nausea. Limit the amount of narcotics that you take as continued use can result in addiction. Discuss long-term narcotic use with your primary care provider or pain management physician. 5. Take stool softeners (Colace) or a water based laxative (Miralax) while taking narcotics. You may hold for loose stools. You may find that you are more constipated with the iron supplementation so you may need to continue MiraLAX daily. 6. Report any fevers greater than 100.5F, increase abdominal discomfort, drainage that looks like pus, increased redness or pain at the surgical site, or any vomiting. 7. Report any pain in the calves, shortness of breath, or rapid heartbeat. 8. Follow-up in the office as directed. 9. Follow-up with urology as directed. Continue Resendez catheter care. 10. Continue wound VAC to the left lower quadrant. Please note we are recommending stop black foam. Start white foam to the area. This has been communicated to home healthcare and has been ordered from [facility]. Report any fever, chills, drainage from your surgery sites, or return of previous symptoms. STOP Benzapril until seen by your primary care provider and advised otherwise. Also follow-up with your primary care provider to have your iron levels rechecked within the next 30 days. - Diet and Activity Activity: increase activity as tolerated Diet: advance to your usual diet
== END 2019-01-26 16:58 | disposition home health service (06) | DRG 330 ==
LOC: 3ANU
PROVIDERS: ADMIT Surgery; ATTEND Surgery